=== PATIENT | male | born 1970 | race Caucasian/White ===

== ENCOUNTER 2017-06-20 14:05 | Day surgery (SDC) | payer OTHER ==
[~2017-06-20] VITALS: Ht 177.8 cm; Wt 108.5 kg
[~2017-06-20 14:05] MED LIST: DEXAMETHASONE SOD PHOS 4 MG/ML VIAL IV ONE; GLYCOPYRROLATE 1 MG/5 ML SYRINGE IV PUSH ONE; LIDOCAINE HCL 1% PF 5 ML SYRINGE OTHER ONE; NEOSTIGMINE 5 MG/5 ML SYRINGE IV PUSH ONE; PHENYLEPH/NS 1000 MCG/10 ML SYR IV ONE; PROPOFOL 200 MG/20 ML AMP IV ONE; ROCURONIUM INJ 50 MG/5 ML SYRINGE IV PUSH ONE; SUCCINYLCHOLINE CHLORIDE 100 MG/5 ML SYRINGE IV PUSH ONE; ePHEDrine/NS 25 MG/5 ML SYRINGE IV ONE
[2017-06-20] MEDS ORDERED: LORazepam 1 MG TAB SL SCH (14:30)
[2017-06-20] MEDS ORDERED: SODIUM CHLORID 0.9% 500 ML IV PRN (14:30)
[2017-06-20] MEDS ORDERED: LACTATED RINGER'S 1000 ML IV PRN (14:30)
[2017-06-20 14:43] VITALS: BP 145/90; PULSE 60; RESP 18; TEMP 98; O2SAT 97
[2017-06-20] MEDS ORDERED: POVIDONE IODINE 5% (ANTISEPSIS KIT) 4 APPLICATIONS EACH NARE PRN (14:45)
[2017-06-20] MEDS ORDERED: CHLORHEXIDINE GLUCONATE 2 % 1 PACK (2 CLOTHS) TOPICAL PRN (14:45)
[2017-06-20] MEDS ORDERED: METOPROLOL TARTRATE 25 MG TAB PO PRN (14:45)
[2017-06-20] MEDS ORDERED: XARE10TA PO (14:47)
[2017-06-20] MEDS ORDERED: MULT-65 PO (14:47)
[2017-06-20] MEDS ORDERED: PRAV10TA PO (14:47)
[2017-06-20] MEDS ORDERED: METO50TA PO (14:47)
[2017-06-20 15:05] LABS: AUTOMATED NEUTROPHIL # 4.8 TH/MM3 (1.8-7.7); BASOPHIL % 0.6 % (0.0-2.0); EOSINOPHIL # 0.1 TH/MM3 (0-0.4); EOSINOPHIL % 1.7 % (0.0-4.0); HEMATOCRIT 39.6 % (39.0-51.0); HEMOGLOBIN 13.7 GM/DL (13.0-17.0); LYMPH % 24.3 % (9.0-44.0); LYMPHOCYTE # 1.7 TH/MM3 (1.0-4.8); MEAN CELL VOLUME 89.9 FL (80.0-100.0); MEAN CORPUSCULAR HEMOGLOBIN 31.1 PG (27.0-34.0); MEAN CORPUSCULAR HGB CONC 34.6 % (32.0-36.0); MEAN PLATELET VOLUME 7.8 FL (7.0-11.0); MONO % 6.4 % (0.0-8.0); MONOCYTE # 0.5 TH/MM3 (0-0.9); PLATELET COUNT 289 TH/MM3 (150-450); RED BLOOD COUNT 4.41 MIL/MM3 (4.50-5.90); RED CELL DISTRIBUTION WIDTH 13.5 % (11.6-17.2); WHITE BLOOD COUNT 7.2 TH/MM3 (4.0-11.0)
[2017-06-20 15:41] LABS: BICARBONATE 29.2 MEQ/L (21.0-32.0); CALCIUM 8.9 MG/DL (8.5-10.1); CREATININE 1.19 MG/DL (0.60-1.30)
[2017-06-20] MEDS ORDERED: HEPARIN-NS/PF FLUSH BAG 2,000 ML IV FLUSH ONE (15:53)
[2017-06-20] MEDS ORDERED: LEVOFLOXACIN 500 MG PREMIX INJ 100 ML IV ONE (15:53)
[2017-06-20] MEDS: SODIUM CHLORID 0.9% 500 ML INJ 500 ML IV SCH (16:48)
[2017-06-20] MEDS ORDERED: ISOPROTERENOL INJ PREMIX 50 ML IV ONE (16:59)
[2017-06-20] MEDS ORDERED: HEPARIN-D5W 25,000 U/250 ML 250 ML ONE (16:59)
[2017-06-20] MEDS ORDERED: PROTAMINE SULFATE 50 MG/5 ML VIAL ONE (17:00)
[2017-06-20] MEDS ORDERED: HEPARIN SODIUM - IV 10,000 UNITS/10 ML VIAL ONE (17:00)
[2017-06-20] MEDS ORDERED: LIDOCAINE HCL 1% PF 30 ML VIAL ONE (17:12)
[2017-06-20 17:39] LABS: PROTHROMBIN TIME - PATIENT 9.8 SEC (9.8-11.6)
--- NOTE | 2017-06-20 19:14 | PD.CARD ---
Atrial Fibrillation Ablation PROCEDURE DATE: June 20, 2017 PROCEDURES PERFORMED: 1. Electrophysiology study on Isuprel infusion 2. CS cannulation 3. 3-D mapping 4. Transseptal approach 5. Right and left heart catheterization 6. Intracardiac echo 7. Radiofrequency ablation of atrial fibrillation 8. Pulmonary vein isolation 9. Posterior wall ablation 10. Mitral line creation 11. Anterior and posterior ablation INDICATIONS FOR THE PROCEDURE Mr. Shanks is a 47-year-old male with atrial fibrillation, very symptomatic, on anticoagulation referred for electrophysiology study and ablation. The risks, the nature and the benefits of the procedure were clearly stated to him. The risks include pneumothorax, cardiac perforation, stroke, need for open heart surgery and even . The patient understood and agreed to proceed. DESCRIPTION OF THE PROCEDURE IN DETAIL As written informed consent was obtained prior to esophageal echocardiogram, the patient was kept on the table where he was prepped and draped in the usual sterile fashion. Conscious sedation was initiated and maintained throughout the procedure by the anesthesiologist. Once sedation was verified, the right and left inguinal areas were anesthetized with 2% Xylocaine. Using modified Seldinger technique, the left femoral vein was cannulated on three occasions, three guidewires were advanced. Over the wire a 6, 7 and a 10-Ecuadorean Hemaquet were advanced. Then the left femoral artery was cannulated on one occasion, one guidewire was advanced. Over the wire a 4-Ecuadorean Hemaquet was advanced. Then the right femoral vein was cannulated on one occasion, one guidewire was advanced. Over the wire a 8-Ecuadorean Hemaquet was advanced. Then under fluoroscopic guidance through the 6 and 7-Ecuadorean Hemaquet, two 5-Ecuadorean Tika curved quadripolar electrophysiology catheters were advanced and placed around the His as well as coronary sinus. Basic interval was measured. The patient was in sinus rhythm. Through the 10-Ecuadorean Hemaquet, a Cordis Curry AcuNav intracardiac echo catheter was advanced and placed at the right atrium. Multiple view was obtained. There no pericardial effusion, pulmonary vein was seen, atrial septal was visualized. Then the 8-Ecuadorean Hemaquet in the right femoral vein was exchanged for Agilis transseptal sheath that was placed all the way to the superior vena cava. Through the sheath a Yaneth needle was advanced, then the sheath, the dilator and the needle were progressed until foci engaged. Once engaged, the needle was advanced. RF was delivered for 2 seconds. I was able to cross into the left atrium. Once the needle crossed, the dilator was advanced. Once the dilator crossed, the sheath was advanced. Once the sheath crossed, the dilator and the needle were removed. At this point I did flood the system and fluid movement was seen in the left atrium the indicates the sheath is in good position. The patient already received 10,000 units of heparin. The goal is to keep an ACT around 350 during ablation. Then through the sheath a [place]. Marcel 20 pulse circumferential catheter was advanced. Using The RealReal endocardial solution mapping system, a two-dimensional configuration of the left atrium was obtained. Points were taken at the left superior and inferior veins, right superior and inferior veins, mitral valve, and appendages. Then through the sheath a St. Marcel TactiCath 65cm 3.5mm irrigated tipped mapping and radiofrequency ablation catheter was advanced. Esophageal probe was placed temperature monitoring during ablation. When it increased to 0.5 degrees Celsius above baseline, I moved to a different area of the atrium. First I did isolate the left superior and inferior vein. I did make a [place] around the veins. Posterior was ablated. Then a mitral line was isolated, then the mitral valve was isolated. Then the right superior and inferior veins were isolated. I did remap the atrium. I did advance the circumferential catheter again into the vein. There was no signal into the vein, pacing from the vein showed no conduction to the atrium. Isuprel infusion was initiated at 20 mcg for over 10 minutes. No tachyarrhythmia was induced, post Isuprel no tachyarrhythmia was induced. At that point the procedure was complete. All catheters were removed, atrial septal sheath was exchanged for 9-Ecuadorean Hemaquet, intracardiac echo showed no pericardial effusion. There is still good flow in the pulmonary vein. The patient is going to be transferred to the recovery room. No incident report. The patient tolerated the procedure. Blood loss was minimal. FINDINGS 1. Electrocardiogram: At baseline the patient was in sinus rhythm, post procedure electrocardiogram was unchanged. 2. Basic interval: Base cycle length was around 1130. AH at 90 and HV at 60 milliseconds. 3. Tachyarrhythmia: Atrial fibrillation was mapped and ablated. The ablation was successful. CONCLUSION Successful electrophysiology study, mapping, radiofrequency ablation of atrial fibrillation, pulmonary vein isolation, posterior ablation, mitral line creation. COMMENTS AND RECOMMENDATIONS The patient is going to be transferred to the telemetry unit. Will be observed and when stable can be discharged home. Nadya Corcoran MD June 20, 2017 19:14
[2017-06-20] MEDS ORDERED: ATROPINE SULFATE 1 MG/ML VIAL IV PUSH PRN (19:15)
[2017-06-20] MEDS ORDERED: METOCLOPRAMIDE HCL 10 MG/2 ML VIAL IV PUSH PRN (19:15)
[2017-06-20] MEDS ORDERED: LORazepam 2 MG/ML VIAL IV PUSH PRN (19:15)
[2017-06-20] MEDS ORDERED: SODIUM CHLOR 0.9% 250 ML INJ 250 ML IV PRN (19:15)
[2017-06-20] MEDS ORDERED: ONDANSETRON HCL 4 MG/2 ML VIAL IV PUSH PRN (19:15)
[2017-06-20] MEDS ORDERED: oxyCODONE/ACETAMINOPHEN 5 MG/325 MG TAB PO PRN ×2 (19:15)
[2017-06-20] MEDS ORDERED: LIDOCAINE HCL 1% 50 ML VIAL INFIL PRN (19:15)
[2017-06-20] MEDS ORDERED: BACITRACIN OINT 0.9 GM PKT TOP ONE (19:15)
--- NOTE | 2017-06-20 19:33 | CATHPROC ---
Patient Name: ASHLEY SMITH Study #: [id number] Initial MD: Nadya Corcoran Date of : 1970 Study Date: 06/20/2017 Cardiac Catheterization Report 06/20/2017 7:32:49 PM Financial #: [id number] 1 of 9 Patient Name: ASHLEY SMITH Study #: [id number] Initial MD: Nadya Corcoran Date of : 1970 Study Date: 06/20/2017 Entire Case Report Patient Information Patient Name ASHLEY SMITH Date of 1970 Age 47 years Financial # [id number] Gender M AlternateID Lab Number 2 Room Number DC08 Height (in) 70.0 Height (cm) 177.8 BSA 2.24 Weight (lbs) 236.3 Weight (kg) 107.4 Patient Address/Phone Number Home Address [facility] Home Phone Number [address] [facility] [address] Study Information Study Number Admission Scheduled Start Study Start [id number] Jun 20 2017 2:05PM 06/20/2017 Jun 20 2017 4:28PM [facility] Electrophysiology Study Admit Source Facility Department Other [facility] - Landscaping Supervisor Physician and Clinical Staff Initial Nadya Gutierrez Tunnel Heading Inspector Barrett Resendiz,RT(R) Other Anesthesia, SUPERVISOR SIGN SHOP Recorder Linda Ferreira,MARILOU Scrub Marian Cline RCIS Procedures Performed Procedure Location (Site) Vessel Name Ablation Procedure ICE CATHETER INSERT RA Atruim RF Ablation LT. ATRIUM LT. [facility] Equipment Time Cadmium Burner Description Size Mfg Part Number Used/Scraped NEEDLE, TRANSSEPTAL NRG 98 [id number] 17:30 [employer] Used C1 *[id number] [employer]/ EP [id number] 17:30 KIT, TRANSDUCER / AFIB Used PACER *[id number] 06/20/2017 7:32:49 PM Financial #: [id number] 2 of 9 Patient Name: ASHLEY SMITH Study #: [id number] Initial MD: Nadya Corcoran Date of : 1970 Study Date: 06/20/2017 [id number] CATHETER, TACTICATH ABLAT BUNDLE 17:30 BUNDLE-[employer] Used 65 BUNDLE *[id number]- BUNDLE [id number] CATHETER, FR7 OPTIMA SPIRAL 17:30 BUNDLE-[employer] FR7 *[id number]- Used BUNDLE BUNDLE [id number] 17:30 BUNDLE-[employer] CATHETER, JSN, QUAD BUNDLE FR 5 *[id number]- Used BUNDLE [id number] 17:30 BUNDLE-[employer] CATHETER, JSN, QUAD BUNDLE FR 5 *[id number]- Used BUNDLE [id number] SET, COOL POINT TUBING 17:30 BUNDLE-[employer] PETER *[id number]- Used BUNDLE BUNDLE SHEATH, FR8.5 STEERABLE SM 17:30 BUNDLE-[employer] [employer] 71CM [id number] Used 71CM BUNDLE [id number] 19:10 [employer] VASCADE, FR5 CLOSURE SYSTEM FR 5 Used *[id number] 19:13 [employer] VASCADE, FR6 CLOSURE SYSTEM FR 6\\7 Used *[id number] 19:13 [employer] VASCADE, FR6 CLOSURE SYSTEM FR 6\\7 Used *[id number] 19:13 [employer] MEDICAL VASCADE, FR6 CLOSURE SYSTEM FR 6\\7 Used *[id number] 19:13 C[employer] MEDICAL VASCADE, FR6 CLOSURE SYSTEM FR 6\\7 Used *[id number] COVER, TRANSDUCER CABLE 612-113 17:30 [employer] Used ACUNAV *[id number] 17:30 CORDIS/PACER SHEATH, FR10 KIP 11CM FR 10 Used *[id number] 18:58 CORDIS/PACER SHEATH, FR10 KIP 11CM FR 10 Used *8451569 [id number] 17:30 [employer] PACK, CCL CUSTOM * Used *3290744 17:30 MEDLINE PACER OLSEN, LIMB * 2530 *[id number] Used 17:31 [employer] MEDICAL SHEATH, FR5.5 PRELUDE 11CM FR 5 [id number] Used [id number] 17:30 NAMIC TUBING, HIGH PRESSURE 48" 48" Used *6383503 [id number] 17:30 NAMIC TUBING, HIGH PRESSURE 48" 48" Used *1333955 [id number] 17:30 [place] MEDICAL BLANKET,WARM AIR CCL * Used *6655537 CA5118 17:30 [employer] MEDICAL ELECTRODE KIT, KWASI X SURFACE * Used *8756850 086341 17:30 [employer] MEDICAL SHEATH, EPS, FR6 FAST CATH FR 6 Used *4157821 17:30 [employer] MEDICAL SHEATH, EPS, FR7 FAST CATH FR 7 106133 Used 168527 17:30 [employer] MEDICAL SHEATH, EPS, FR8 FAST CATH FR 8 Used *[id number] CATHETER, ACUNAV FR10 ICE [id number] 17:52 RAQUEL FR 10 Used (RAQUEL) *[id number] [facility] PAD, ELECTROSURGICAL 17:30 * [id number] *[id number] Used SURGICAL GROUNDING (BLUE) 06/20/2017 7:32:49 PM Financial #: [id number] Patient Name: ASHLEY SMITH Study #: [id number] Initial MD: Nadya Corcoran Date of : 1970 Study Date: 06/20/2017 Insurance Information Insurance Payor Private Health Insurance Third Republican Third Republican Number [facility] - HMO FHCHMO Medication Medication Total Dose (Bolus/Oral) Medication Total Dosage/Unit 1% XYLOCAINE 40 mL HEPARIN 59284 units PROTAMINE 40 mg Medications (Bolus/Oral) Medication Time Given Dosage/Unit Administered By Reason 1% XYLOCAINE 06/20/2017 5:45:40 PM 20 mL Nadya Corcoran 20 mL 1% XYLOCAINE given in lab by Nadya Corcoran in Left Groin via Subcutaneous. 1% XYLOCAINE 06/20/2017 5:51:00 PM 20 mL Nadya Corcoran 20 mL 1% XYLOCAINE given in lab by Nadya Corcoran in Right Groin via Subcutaneous. HEPARIN 06/20/2017 5:56:40 PM 83468 units Anesthesia, SUPERVISOR SIGN SHOP As per physicians ve rbal order 15900 units HEPARIN given in lab by Anesthesia, SUPERVISOR SIGN SHOP via Peripheral IV. Ordered by Nadya Corcoran. Clive son: As per physicians verbal order. HEPARIN 06/20/2017 6:08:15 PM 4000 units Anesthesia, SUPERVISOR SIGN SHOP As per physicians ve rbal order 4000 units HEPARIN given in lab by Anesthesia, SUPERVISOR SIGN SHOP via Peripheral IV. Ordered by Nadya Corcoran. Reas on: As per physicians verbal order. PROTAMINE 06/20/2017 7:04:32 PM 40 mg Anesthesia, SUPERVISOR SIGN SHOP As per physicians verb al order 40 mg PROTAMINE given in lab by Anesthesia, SUPERVISOR SIGN SHOP via Peripheral IV. Ordered by Nadya Corcoran. Reason: As per physicians verbal order. Medication (Drip) Medication Time Given Dosage/Unit Concentration/Unit Diluent (ml) Solution HEPARIN DRIP 06/20/2017 6:09:00 PM 1000 units/hr 34185 units 250 D5W 1000 units/hr HEPARIN DRIP given in lab by Anesthesia, SUPERVISOR SIGN SHOP via Peripheral IV. Pump/Drip Flow = 10 ml /hr [place] [address] units in 250 ml. Ordered by Nadya Corcoran. Reason: As per physicians verbal order. ISUPREL 06/20/2017 6:51:00 PM 20 mcg/min 1 mg 250 NaCl .9 20 mcg/min ISUPREL given in lab by Anesthesia, SUPERVISOR SIGN SHOP via Peripheral IV. Pump/Drip Flow = 300 ml/hr usi ng NaCl .9 with a concentration of 1 mg in 250 ml. Ordered by Nadya Corcoran. Reason: As per physicians verbal order. LEVAQUIN 06/20/2017 5:24:26 PM 100 mL/hr 500 100 NaCl .9 100 mL/hr LEVAQUIN given in lab by Anesthesia, SUPERVISOR SIGN SHOP via Peripheral IV. Pump/Drip Flow = 0 ml/hr using NaCl .9 with a concentration of 500 in 100 ml. Ordered by Nadya Corcoran. Reason: As per physicians verbal order. 06/20/2017 7:32:49 PM Financial #: [id number] Patient Name: ASHLEY SMITH Study #: [id number] Initial MD: Nadya Corcoran Date of : 1970 Study Date: 06/20/2017 Initial Case Assessment Cardiovascular HR Rhythm NIBP Chest Pain 51 sr 121/74 0 Edema Present Skin color Skin None Normal Warm Dry Circulatory - Right Pulses Dorsalis Pedis 3 Scale (0,1,2,3,4,d) Circulatory - Left Pulses Dorsalis Pedis 3 Scale (0,1,2,3,4,d) Circulatory - Lower Extremities Color Lower Right Color Lower Left Normal Normal Neurological State Oriented to time-place- Alert Moves all extremities person Respiration - General Respiration Rate SpO2 (%) (B/min) 18 96 06/20/2017 7:32:49 PM Financial #: [id number] 5 of 9 Patient Name: ASHLEY SMITH Study #: [id number] Initial MD: Nadya Corcoran Date of : 1970 Study Date: 06/20/2017 Final Case Assessment Cardiovascular HR NIBP Chest Pain 68 108/59 0 Edema Present Skin color Skin None Normal Warm Dry Circulatory - Right Pulses Dorsalis Pedis 3 Scale (0,1,2,3,4,d) Circulatory - Left Pulses Dorsalis Pedis 3 Scale (0,1,2,3,4,d) Circulatory - Lower Extremities Color Lower Right Color Lower Left Normal Normal Neurological State Unresponsive Comment: intubated Respiration - General Respiration Rate SpO2 (%) (B/min) 16 98 Respiration - Ventilator Type Intubation Type ET(oral) Chronological Log Time Study Chronological Log 16:47:16 Patient arrived via Bed. 16:47:17 Patient Name, D.O.B, / Armband Verified By R.N. 16:47:17 Consent signed by the physician and the patient and verified by the Landscaping Supervisor staff. 16:47:18 Pre-op and post- op instructions given; patient acknowledges understanding of instructions. 16:47:19 Verbal Stimulation=2 Physical Stimulation=2 Airway=2 Respiration=2 TOTAL=8. (0=absent, 1=li mited, 2=present) 16:47:29 Patient has been NPO for More than 6Hrs. 06/20/2017 7:32:49 PM Financial #: [id number] 6 of 9 Patient Name: ASHLEY SMITH Study #: [id number] Initial MD: Nadya Corcoran Date of : 1970 Study Date: 06/20/2017 16:47:30 Skin Breakdown- none per pt 16:47:38 Patient Warmer Placed on the Table. 16:47:39 Disposable Defibrillator Pads Placed On Patient. 16:47:41 Ace Prominences Protected 16:47:42 A # 20 IV was noted in the Antecubital (left). Grade = 0 0.9ns kvo 16:47:53 A # 20 IV was noted in the Antecubital (right). Grade = 0 0.9ns kvo 16:48:06 History and physical on the chart. 17:00:30 Anesthesia at bedside. Assumes care of patient. Rebekah Assessment: Initial Case, HR=51 BPM, Rhythm=sr, AXMU=778/74 mmhg, Chest Pain=0, Edema=None, Col or=Normal, Skin = Warm, Dry Right Pulses: Leonard Ped=3 Left Pulses: Leonard Ped=3 17:05:15 Lower Right Extremities: Color=Normal Lower Left Extremities: Color=Normal Neurological: State=Alert, Ox3, ESPIN[place]A Respiration: Resp=18 B/min, SpO2=96 % 17:08:03 Table restraints applied according to hospital policy 17:10:30 Anesthesiologist presnt for intubation. 14fr lee inserted w/o difficulty. Clear yellow ur ine obtained. 17:23:17 Bilateral groins prepped with 2% chlorhexidine, and draped after a 3 minute waiting time. 100 mL/hr LEVAQUIN given in lab by Anesthesia, SUPERVISOR SIGN SHOP via Peripheral IV. Pump/Drip Flow = 0 ml/hr using NaCl .9 with 17:24:26 a concentration of 500 in 100 ml. Ordered by Nadya Corcoran. Reason: As per physicians verbal or gena. 17:29:19 MD paged 17:32:26 MD responded 17:38:25 MD arrived. Time Out. Correct patient, procedure, procedure equipment, site and side verified with physicia n present. Time 17:41:00 concurred by MD, individual staff and SUPERVISOR SIGN SHOP. Time Out #2 - Consents verified, patient in correct position, all results are labled and displa yed, safety precautions 17:41:20 taken, antibiotics administered. Time out concurred by MD, individual staff and SUPERVISOR SIGN SHOP in procedu re 17:41:29 Case Start 17:41:33 Kevin in progress. 17:45:00 Kevin complete 17:45:40 20 mL 1% XYLOCAINE given in lab by Nadya Corcoran in Left Groin via Subcutaneous. 17:45:55 Vascular access was obtained in the Fem Vein (left). 17:45:56 Vascular access was obtained in the Fem Vein (left). 17:46:00 Vascular access was obtained in the Fem Vein (left). 17:46:04 Vascular access was obtained in the Fem Art (left). A SHEATH, FR5.5 PRELUDE 11CM FR 5 was advanced into the Fem Art (left) using the Modified Seldi nger technique. 17:46:18 0.9ns pressure bag connected. 17:48:22 A SHEATH, EPS, FR6 FAST CATH FR 6 was advanced into the Fem Vein (left) using the Modified Seldinger technique. 17:48:55 A SHEATH, FR10 KIP 11CM FR 10 was advanced into the Fem Vein (left) using the Modified S eldinger technique. 17:51:00 20 mL 1% XYLOCAINE given in lab by Nadya Corcoran in Right Groin via Subcutaneous. 17:51:25 Vascular access was obtained in the Fem Vein (right). 06/20/2017 7:32:49 PM Financial #: [id number] Patient Name: ASHLEY SMITH Study #: [id number] Initial MD: Nadya Corocran Date of : 1970 Study Date: 06/20/2017 17:51:28 A SHEATH, EPS, FR8 FAST CATH FR 8 was advanced into the Fem Vein (right) using the Modified Seldinger technique. A CATHETER, JSN, QUAD BUNDLE FR 5 was advanced vis Fem Vein (left) and placed in the CS. Placem ent was visually 17:51:45 confirmed under fluoroscopy. 17:52:18 CATHETER, ACUNAV FR10 ICE (RAQUEL) FR 10 Was Postioned. A CATHETER, JSN, QUAD BUNDLE FR 5 was advanced vis Fem Vein (left) and placed in the HIS. Place ment was 17:54:11 visually confirmed under fluoroscopy. 17:54:19 Begining temp 36.7 05501 units HEPARIN given in lab by Anesthesia, SUPERVISOR SIGN SHOP via Peripheral IV. Ordered by Breanna Corcoran Reason: As per 17:56:40 physicians verbal order. A SHEATH, FR8.5 STEERABLE SM 71CM BUNDLE 71CM was exchanged in the Fem Vein (right). This was n ecessary in 17:56:46 order for catheter support. 17:57:30 [place] in 17:58:50 A eps was advanced to the right atrium and passed through the septal wall to the left atriu m. 17:59:00 [place] out A CATHETER, FR7 OPTIMA SPIRAL BUNDLE FR7 was advanced vis Fem Vein (right) and placed in the LA . Placement 17:59:17 was visually confirmed under fluoroscopy. Mapping in progress. 18:01:09 Activated Clotting Time Drawn 18:07:41 ACT (Normal Range 90-180) = 279 4000 units HEPARIN given in lab by Anesthesia, SUPERVISOR SIGN SHOP via Peripheral IV. Ordered by Nadya Corcoran . Reason: As per 18:08:15 physicians verbal order. 1000 units/hr HEPARIN DRIP given in lab by Anesthesia, SUPERVISOR SIGN SHOP via Peripheral IV. Pump/Drip Flow = 10 ml/hr using 18:09:00 [place] [address] units in 250 ml. Ordered by Nadya Corcoran. Reason: As per phy sicians verbal order. 18:12:22 Mapping complete. Catheter was removed A CATHETER, TACTICATH ABLAT 65 BUNDLE was advanced vis Fem Vein (right) and placed in the LA. P lacement was 18:12:43 visually confirmed under fluoroscopy. 18:13:00 RF Ablation of the LT. ATRIUM with a CATHETER, TACTICATH ABLAT 65 BUNDLE. 18:14:59 Ablation procedure performed: AFIB. 18:15:00 Activated Clotting Time Drawn 18:15:04 EP Procedure was performed. 18:20:58 ACT (Normal Range 90-180) = 351 18:42:21 Ablation catheter was removed A CATHETER, FR7 OPTIMA SPIRAL BUNDLE FR7 was advanced vis Fem Vein (right) and placed in the LA . Placement 18:42:43 was visually confirmed under fluoroscopy. 18:43:45 EPS in progress. 20 mcg/min ISUPREL given in lab by Anesthesia, SUPERVISOR SIGN SHOP via Peripheral IV. Pump/Drip Flow = 300 ml/ hr using NaCl .9 18:51:00 with a concentration of 1 mg in 250 ml. Ordered by Nadya Corcoran. Reason: As per physicians becca bal order. 19:01:19 Isuprel off. 19:02:40 All catheter(s) removed without difficulty A SHEATH, FR10 KIP 11CM FR 10 was exchanged in the Fem Vein (right). This was necessary in o rder to minimize 19:03:01 site leakage. 19:04:24 Heparin off. 40 mg PROTAMINE given in lab by Anesthesia, SUPERVISOR SIGN SHOP via Peripheral IV. Ordered by Nadya Corcoran. R javier: As per 19:04:32 physicians verbal order. 19:09:43 VASCADE, FR5 CLOSURE SYSTEM FR 5 placement in the Fem Art (left) 19:11:56 VASCADE, FR6 CLOSURE SYSTEM FR 6\\7 placement in the Fem Vein (right) 06/20/2017 7:32:49 PM Financial #: [id number] 8 of 9 Patient Name: ASHLEY SMITH Study #: [id number] Initial MD: Nadya Corcoran Date of : 1970 Study Date: 06/20/2017 19:12:40 VASCADE, FR6 CLOSURE SYSTEM FR 6\\7 placement in the Fem Vein (left) 19:12:59 Activated Clotting Time Drawn 19:13:13 VASCADE, FR6 CLOSURE SYSTEM FR 6\\7 placement in the Fem Vein (left) 19:13:52 VASCADE, FR6 CLOSURE SYSTEM FR 6\\7 placement in the Fem Vein (left) 19:15:00 ACT (Normal Range 90-180) = 169 19:25:34 Pressure held to sites by DB and DC. 19:26:59 PACU called. Spoke to Cline. 19:27:12 Bedside Report will be given. 19:29:53 Ablation procedure performed: AFIB. 19:29:58 EP Procedure was performed. 19:30:14 Case complication noted. Assessment: Final Case, HR=68 BPM, QLNU=705/59 mmhg, Chest Pain=0, Edema=None, Color=Normal, S kin = Warm, Dry Right Pulses: Leonard Ped=3 Left Pulses: Leonard Ped=3 19:30:16 Lower Right Extremities: Color=Normal Lower Left Extremities: Color=Normal Neurological: State=Unresponsive, Comment=intubated Respiration: Resp=16 B/min, SpO2=98 %, Type=ET(Oral) 19:35:09 Case End 19:35:11 Sterile dressing applied to site 19:45:38 Patient moved to stretcher End Study - Contrast Media Used In Study Contrast Total Opened (mL) Total Used (mL) Total Wasted (mL) Unspecified 0 0 0 End Study - Radiation Exposure Fluoro Time (minutes) 1.8 End Study - Sheaths Sheaths Pulled By Sheath Hold Time (min) Nadya Corcoran End Study - Patient Disposition Complications Transferred To Interventional Outcome No Telemetry Bed successful 06/20/2017 7:32:49 PM Financial #: [id number]
[2017-06-20] MEDS ORDERED: DO NOT ADM ANY ANTICOAGULANT DRUGS PRN (19:50)
[2017-06-20] MEDS ORDERED: MIDAZOLAM HCL 2 MG/2 ML VIAL ONE (19:55)
[2017-06-20 20:45] VITALS: BP 112/63; PULSE 58; PULSE 61; RESP 18; TEMP 97.5; O2SAT 96
[2017-06-20 23:00] VITALS: BP 116/65; PULSE 61; PULSE 62; RESP 18; TEMP 97.7; O2SAT 97
[2017-06-21] VITALS (10 sets, daily range): BP systolic 104–123; BP diastolic 59–69; PULSE 60–78; RESP 16–19; TEMP 97.8–97.9; O2SAT 96
[2017-06-21 05:56] LABS: PROTHROMBIN TIME - PATIENT 10.4 SEC (9.8-11.6)
[2017-06-21] MEDS: SODIUM CHLORID 0.9% 500 ML INJ 500 ML IV SCH (07:10)
[2017-06-21] MEDS ORDERED: MULTIVITAMIN TAB PO SCH (09:00)
[2017-06-21] MEDS ORDERED: RIVAROXABAN 10 MG TAB PO SCH (09:00)
[2017-06-21] MEDS ORDERED: PRAVASTATIN SOD 10 MG TAB PO SCH (09:00)
[2017-06-21] MEDS ORDERED: METOPROLOL TARTRATE 50 MG TAB PO SCH (09:00)
[2017-06-21] MEDS ORDERED: NON-FORMULARY DRUG (Multiple Vitamin (Multi-Vitamin Daily) 1 TAB) PO SCH (09:00)
--- NOTE | 2017-06-21 10:55 | EKG ---
Date Performed: 06/21/2017 Time Performed: 03:32:42 PTAGE: 47 years EKG: Sinus bradycardia Possible anterior infarct - age undetermined Inferior T wave changes are nonspecific Abnormal ECG PREVIOUS TRACING : 06/20/2017 20.07 DOCTOR: Brett Belcher Interpretating Date/Time 06/21/2017 10:53:21
--- NOTE | 2017-06-21 11:16 | EKG ---
Date Performed: 06/20/2017 Time Performed: 20:07:06 PTAGE: 47 years EKG: Sinus rhythm POSSIBLE LEFT ATRIAL ENLARGEMENT BORDERLINE ECG PREVIOUS TRACING : 06/20/2017 14.50 DOCTOR: Brett Belcher Interpretating Date/Time 06/21/2017 11:14:59
--- NOTE | 2017-06-21 11:39 | EKG ---
Date Performed: 06/20/2017 Time Performed: 14:50:38 PTAGE: 47 years EKG: Sinus rhythm . Poor R wave progression - probable normal variant Low QRS voltages in precordial leads Borderline E CG NO PREVIOUS TRACING DOCTOR: Brett Belcher Interpretating Date/Time 06/21/2017 11:36:59
--- NOTE | 2017-06-21 13:17 | HHI.PR ---
Subjective Remarks Some discomfort. Otherwise feeling fine Objective Vital Signs Date Time Temp Pulse Resp B/P (MAP) Pulse Ox O2 Delivery O2 Flow Rate FiO2 06/21/17 13:00 67 06/21/17 12:00 78 06/21/17 11:00 97.9 70 19 123/59 (80) 06/21/17 11:00 64 06/21/17 10:00 65 06/21/17 09:00 70 06/21/17 08:45 120/69 (86) 06/21/17 08:00 62 06/21/17 07:15 97.8 67 17 108/69 (82) 06/21/17 07:00 60 06/21/17 03:00 63 06/21/17 03:00 97.9 69 16 104/61 (75) 96 06/20/17 23:00 61 06/20/17 23:00 97.7 62 18 116/65 (82) 97 06/20/17 20:45 97.5 61 18 112/63 (79) 96 06/20/17 20:45 58 06/20/17 20:30 98.8 63 18 107/59 (75) 93 Nasal Cannula 3 06/20/17 20:15 62 18 104/57 (73) 93 Nasal Cannula 3 06/20/17 20:00 63 14 111/60 (77) 92 Room Air 06/20/17 19:49 99.1 66 14 117/68 (84) 99 Simple Mask 8 06/20/17 14:43 98.0 60 18 145/90 (108) 97 I/O 06/20/17 06/20/17 06/20/17 06/21/17 06/21/17 06/21/17 07:00 15:00 23:00 07:00 15:00 23:00 Intake Total 1660 ml 720 ml Output Total 260 ml 650 ml Balance 1400 ml 70 ml Intake Oral 60 ml 720 ml IV Total 800 ml Other 800 ml Output Urine Total 250 ml 650 ml Estimated Blood Loss 10 ml Other 0 ml # Bowel Movements 0 Result Diagram: 06/20/17 1435 06/20/17 1532 Imaging Alert, fully oriented Lungs: ventilated Heart: S1, S2 regular, no murmur Abdomen: soft, no mass Ext: no edema Current Medications Medications (Trade) Dose Ordered Sig/Angelica Route Start Time Stop Time Status Last Admin Lactated Ringer's 1,000 ml @ 30 mls/hr Q24H PRN IV 06/20/17 14:30 06/23/17 14:29 Sodium Chloride 500 ml @ 30 mls/hr [id number] PRN IV 06/20/17 14:30 06/23/17 14:29 (Lopressor) 25 mg BERRY PICKER PRN PO 06/20/17 14:45 06/23/17 14:44 (Betadine 5% Antisepsis Kit) 1 applic BERRY PICKER PRN EACH NARE 06/20/17 14:45 06/23/17 14:44 (Chlorhexidine 2% Cloth) 3 pack BERRY PICKER PRN TOPICAL 06/20/17 14:45 06/23/17 14:44 Sodium Chloride 500 ml @ 30 mls/hr [id number] IV 06/20/17 14:30 06/20/17 16:48 (Ativan) 1 mg BERRY PICKER SL 06/20/17 14:30 06/23/17 14:29 (Percocet 5-325 Mg) 1 tab Q4H PRN PO 06/20/17 19:15 (Percocet 5-325 Mg) 2 tab Q4H PRN PO 06/20/17 19:15 (Ativan Inj) 0.5 mg UNSCH PRN IV PUSH 06/20/17 19:15 06/21/17 19:14 (Atropine Inj) 0.5 mg UNSCH PRN IV PUSH 06/20/17 19:15 Sodium Chloride 250 ml @ 500 mls/hr ONCE PRN IV 06/20/17 19:15 06/21/17 19:14 (Reglan Inj) 10 mg Q4H PRN IV PUSH 06/20/17 19:15 (Zofran Inj) 4 mg Q4H PRN IV PUSH 06/20/17 19:15 (Xylocaine 1% Inj (50 ml)) 10 ml UNSCH PRN INFIL 06/20/17 19:15 06/21/17 19:14 (Lopressor) 50 mg DAILY PO 06/21/17 09:00 06/21/17 08:57 (Pravachol) 10 mg DAILY PO 06/21/17 09:00 (Xarelto) 10 mg DAILY PO 06/21/17 09:00 5/8/18 08:57 (Theragran) 1 tab DAILY PO 06/21/17 09:00 06/21/17 08:57 ([facility] [place] NURSING DEPARTME... UNSCH PRN .XX 06/20/17 19:50 06/21/17 19:49 Assessment and Plan Problem List: (1) Atrial fibrillation ICD Codes: I48.91 - Unspecified atrial fibrillation Plan: SP ablation Doing well In sinus rhythm Will be DH Follow up as previously scheduled (2) Palpitations ICD Codes: R00.2 - Palpitations Plan: No palpitation reported Nadya Corcoran MD June 21, 2017 13:17
== END 2017-06-21 14:50 | disposition home or self-care (01) ==
LOC: HDOC 14:05 → HDIC 14:06 → HCPC 20:55 → HDOC 06-21 14:50
PROVIDERS: ATTEND Internal Medicine Interventional Cardiology
DX: I48.91 Unspecified atrial fibrillation (principal); I47.1 Supraventricular tachycardia; E78.5 Hyperlipidemia, unspecified; K21.9 Gastro-esophageal reflux disease without esophagitis
CPT/HCPCS: 00537; 80048; 85002; 85025; 85610; 85730; 86850; 86900; 86901; 93005; 93312; 93320; 93325; 93613; 93623; 93656; 93662; C1730; C1731; C1732; C1759; C1760; C1766; C2630; G0269; J0330; J1100; J1644; J1956; J2250; J2370; J2710; J2720; J3010; J7040